=== PATIENT | male | born 1970 | race Caucasian/White ===

== ENCOUNTER 2017-06-26 12:46 | Emergency (ER) | payer BC ==
[~2017-06-26] VITALS: Ht 177.8 cm; Wt 108.9 kg
[~2017-06-26 12:46] MED LIST: ATORVASTATIN CA10 MG; BACTRIM DS 8001 TA1 PO; CLARINEX-D12 HO1 T12; DIOVAN320 MG; LANSOPRAZOLE30 MG; SKELAXIN800 MG PO; TORADOL10 M1 PO
--- NOTE | 2017-06-26 13:09 | Emergency Room Report ---
History of Present Illness Time Seen by [id number] Presenting Problem in Triage Pt arrived:Walked Presenting Problem:PT C/O PAIN IN HIS RIGHT GROIN/ FLANK AREA THAT STARTED YESTERDAY Onset of symptoms date/time:/ or onset unknown for:MEDICAL HX UNKNOWN Treatment Prior to Arrival: [employer] Provided by: Sepsis Risk Assessment: Temp: 98.4 B/P: 187/100 MAP: 129 Pulse: 92 Resp: 16 Recent fever? N Clinical Suspician of Infection? N Mental Status: 1 - Regular (Normal Baseline) Sepsis Risk:Low Sepsis Risk Have you (or family members/close friends) recently traveled outside the [place]? N If Yes, where/when: Have you had exposure to infectious disease within the past month? N TB? Other? Specify: Patient with hx renal calculi, not requiring intervention, with intermittent right sided flank and low back pain for the past few days, some pressure with urination, no fever or vomiting, pain radiating to right testicle this morning and now better; has chronic low back pain with sciatica but no new neurological sx; no loss of bowel or bladder function. ALLERGIES Coded Allergies: Penicillins (Mild, 06/26/17) erythromycin base (Mild, 06/26/17) Home Medications Reported Medications Lansoprazole (Lansoprazole) ATORVASTATIN CALCIUM (ATORVASTATIN 10MG) History Medical History General CAD? No Angina: No IA: No Hypertension? Yes Hyperlipidemia? Yes CHF? No DVT? No PE? No COPD? No Asthma? No Anemia? No GERD? No Gastric ulcers? No GI Bleed? No Hernia? No Thyroid Problems? No Hypothyroidism? No CVA? No Seizures? No Diabetes? No Renal Insuffiency? No End Stage Renal Disease? No UTI? No Stones? No BPH? No GB Disease: No Nephritic Syndrome? No Asplenia? No Hepatitis? No Sickle Cell Disease? No Arthritis? No Migraines? No Cataracts? No Glaucoma? No MRSA? No HIV? No TB? No Anxiety? No Depression? No Cancer? No More? No Immunization Hx DT/Tetanus 2004 Surgical Hx Previous Surgery?N Social History Smoking Hx Smoker: Never Smoker Tobacco: No Alcohol Alcohol: Yes Review of Systems All Other Systems Reviewed and Negative Gastrointestinal see HPI Genitourinary see HPI. Physical Exam Vital Signs Vital Signs Date Time Temp Pulse Resp B/P Pulse O2 O2 Flow FiO2 Ox Delivery Rate 06/26 1427 76 20 148/90 95 06/26 1319 20 06/26 1255 98.4 92 16 187/100 95 General Appearance normal appearance, WD/WN, no apparent distress Eye Exam - bilateral eye normal exam, bilateral eye PERRL, bilateral eye EOMI Neck normal inspection, non-tender, supple Respiratory Status Yes: trachea midline, chest symmetrical, non tender chest. No: respiratory distress, tender on palpation, use of accessory muscles, pain on inspiration, pain on expiration, productive cough, non productive cough. Lung Sounds bilateral: normal breath sounds, lungs clear. Cardiovascular normal exam, regular rate/rhythm, no peripheral edema, no gallop, no JVD, no murmur, no rub Gastrointestinal normal bowel sounds, normal exam, non tender, soft, no organomegaly, no pulsatile mass, no guarding, no rebound Back normal inspection, no CVA tenderness, no vertebral tenderness, bowel/ bladder continent, gait normal, muscle spasm (lower right/glute), strt leg raising(L)-NML, strt leg raising(R)-NML Extremities non-tender, normal range of motion, normal inspection, normal capillary refill, no calf tenderness, no pedal edema Strength 5 Upper Ext (L), 5 Upper Ext (R), 5 Lower Ext (L), 5 Lower Ext (R) Neurologic alert, normal exam, no motor/sensory deficits, oriented x 3 Glascow Coma Scale Glascow Coma Scale Response Value EYE response: 4 Spontaneously 4 MOTOR response: 6 OBEYS 6 Total 10 Reflexes Reflexes normal Yes DTR 3+ ankle (R), 3+ ankle (L) Skin intact, normal color, warm/dry Medical Decision Making LABS/Meds/Orders Pt receiving controlled substance in ED? Yes Edy was queried for this patient? Yes Reference #: [id number] Results/Orders Laboratory Tests 06/26/17 1310: Sodium 141, Potassium 4.0, Chloride 105, Carbon Dioxide 25, BUN 18, Creatinine 1.2, Estimated Creat Clear 115, Estimated GFR (MDRD) 64, Glucose 118 H, Calcium 9.5, Total Bilirubin 0.7, AST 34, ALT 54, Alkaline Phosphatase 128 H, Total Protein 8.2, Albumin 4.6, Globulin 3.6 H, Albumin/Globulin Ratio 1.3, Amylase 78, Lipase 159, WBC 8.0, RBC 4.92, Hgb 15.4, Hct 45.2, MCV 91.9, RDW 13.5, Plt Count 193, MPV 7.2 L, Gran % 71.8, Gran # 5.7, Lymphocytes % 20.0, Monocytes % 7.1, Eosinophils % 0.9, Basophils % 0.2, Lymphocytes # 1.6, Monocytes # 0.6, Eosinophils # 0.1, Basophils # 0.0, PUBS MCHC 34.0, MCH 31.3 H 06/26/17 1300: Urine Color YELLOW, Urine Appearance CLEAR, Urine pH 5.5, Ur Specific [place] 1.020, Urine Protein 1+ H, Urine Ketones NEGATIVE, Urine Blood 3+ H, Urine Nitrate NEGATIVE, Urine Bilirubin NEGATIVE, Urine Urobilinogen 0.2, Ur Leukocyte Esterase NEGATIVE, Urine RBC TNTC, Urine WBC OCC, Ur Squamous Epith Cells OCC, Urine Bacteria 2+, Urine Mucus 1+, Urine Glucose NEGATIVE Current Medication Orders Sig/Teri Start time Last Medication Dose Route Stop Time Status Admin Ketorolac 30 MG ONCE ONE 06/26 1315 DC 06/26 Tromethamine IV 06/26 1316 1319 Ondansetron HCl 4 MG ONCE ONE 06/26 1315 DC 06/26 IV 06/26 1316 1319 Sodium Chloride 10 ML PRN PRN 06/26 1315 AC IV 06/27 1303 Sodium Chloride 1,000 ML .Q1H1M 06/26 1315 DC 06/26 IV 06/26 1415 1317 Sodium Chloride 10 ML PRN PRN 06/26 1315 AC IV 06/27 1303 Sodium Chloride 1,000 ML .STK-MED ONE 06/26 1315 DC IV Ketorolac 0 .STK-MED ONE 06/26 1314 DC Tromethamine .ROUTE Ondansetron HCl 0 .STK-MED ONE 06/26 1314 DC .ROUTE Orders Procedure Date/time Status DIET-NOTHING BY MOUTH 06/[address] ABD/PELVIS REQ 06/26 1303 Complete IV SALINE LOCK 06/26 1303 Active URINALYSIS/COMPLETE 06/26 1303 Complete LIPASE 06/26 1303 Complete CBC WITH AUTO DIFF 06/26 1303 Complete CHEM 12 PROFILE 06/26 1303 Complete AMYLASE 06/26 1303 Complete CULTURE, URINE 06/26 1300 Active XRAY/CT/US XRAY/CT/US CT abdomen, pelvis CT interpretation by reviewed by me (report reviewed) Time results known: 1448 CT Results normal/NAD (5 mm distal ureteral calc,hydr) Departure Departure Time of Disposition 1448 Disposition DC Home or Self Care(routine) Clinical Impression Primary Impression: Ureteral calculus, right Condition STABLE Referrals César ADLER,Yoni Fang MD,Gregorio Patient Instructions DI for Kidney Stones Additional Instructions Filter urine; Rx Naproxen, Rx Lortab; Rx Zofran; see urologist (either Dr. Lindsey or Dr. Fang) in one to four days for recheck. Discharge Counseling Counseled pt/family regarding diagnosis, test results, R/B of controlled subst., medications/RX, home care, follow up needs Prescriptions Current Visit Scripts NAPROXEN (NAPROXEN 500MG TAB) 500 MG PO BIDP PRN pain #20 TAB Ondansetron (Zofran 4MG Odt) 4 MG PO Q6HP PRN NAUSEA AND VOMITING #10 ODT generic ok HYDROCODONE/ACETAMINOPHEN (Lortab 10-325 (generic) Tablet) 1 TAB PO Q6HP PRN pain #20 TAB ED Critical Care Critical Care No at 8250
[2017-06-26 13:12] LABS: URINE BILIRUBIN - DIPSTICK NEGATIVE (NEG); URINE BLOOD 3+ (NEG)
[2017-06-26 13:21] LABS: HEMOGLOBIN 15.4 g/dL (14.1-18.0); LYMPH # 1.6 K/mm3 (0.7-4.5)
[2017-06-26 13:22] LABS: URINE SQUAMOUS CELLS OCC #/hpf (OCC)
--- NOTE | 2017-06-26 14:44 | RADIOLOGY REPORT PS360 ---
CT ABD PELVIS W/O CONTRAST CLINICAL INDICATION: RT GROIN/FLANK PAIN ORDERING PHYSICIAN: Laura Joe MD PATIENT AGE: 47 years COMPARISON: None TECHNIQUE: Axial images obtained with sagittal and coronal reformats. PROCEDURE: Oral Contrast: None IV Contrast: None . FINDINGS: Lower thorax: 4 mm noncalcified nodule is present in the right middle lobe. Abdomen pelvis: There is mild diffuse fatty liver infiltration with some sparing of the fatty infiltration in the gallbladder fossa region. There is mild distention of the gallbladder with gallstones noted. Spleen, adrenal glands, and pancreas are unremarkable appearance. There are punctate right renal calculi. There is mild right hydronephrosis and hydroureter secondary to a 5 mm stone in the distal one third of the ureter at the pelvic inlet. This is at least 5 7-m proximal to the ureterovesical junction. There is hyperdensity of the appendix and may be related to recently ingested material. No evidence of appendicitis. There is diverticulosis of the descending and sigmoid colon but no evidence of diverticulitis. There is ankylosis of the thoracic spine. IMPRESSION: 1. 5 mm right distal ureteral stone with mild hydroureteronephrosis. 2. Right nephrolithiasis. 3. Cholelithiasis.
[2017-06-26] MEDS ORDERED: HYDROCODONE/ACE1 TA5 PO (14:52)
[2017-06-26] MEDS ORDERED: NAPROXEN SODIU500 MG PO (14:52)
[2017-06-26] MEDS ORDERED: ZOFRAN ODT4 MG PO (14:52)
[2017-06-26 14:57] VITALS: BP 132/75
[2017-07-03] MEDS ORDERED: VALSARTAN AND H1 TA4 PO (10:28)
[2017-07-03] MEDS ORDERED: CYCLOBENZAPRINE10 MG PO (10:29)
== END 2017-06-26 14:58 | disposition home or self-care (01) ==
LOC: ER 12:46
PROVIDERS: Emergency Medicine
DX: N13.2 Hydronephrosis with renal and ureteral calculous obstruction (principal); Z87.442 Personal history of urinary calculi; I10 Essential (primary) hypertension
CPT/HCPCS: J2405